=== PATIENT | male | born 1945 | race Caucasian/White ===

== ENCOUNTER 2019-04-26 06:08 | Day surgery (SDC) | payer OTHER ==
[2019-04-26] MEDS ORDERED: Lactated Ringers 1,000 ML IV SCH (07:00)
[2019-04-26] MEDS ORDERED: fentaNYL 100 MCG/2 ML SDV ONE (07:34)
[2019-04-26] MEDS ORDERED: Midazolam 1 MG/ML 2 ML SDV ONE (07:34)
[2019-04-26] MEDS ORDERED: Propofol 200 MG/20 ML SDV ONE (07:34)
--- NOTE | 2019-04-26 08:55 | OR ---
DATE OF PROCEDURE: 04/26/2019 PREOPERATIVE DIAGNOSIS: History of colon polyps. POSTOP DIAGNOSIS: Unremarkable colonoscopy, history of colon polyps. PROCEDURE: Colonoscopy to the cecum. SURGEON: Damon Zelaya MD ANESTHESIA: IV anesthesia with monitored anesthesia care. INDICATION: This 74-year-old white male is referred for a colonoscopy because of history of colon polyps. He says his last colonoscopic exam was done 5 years ago. I counseled him for the procedure, including risks and alternatives, and he gave his informed consent to proceed. DESCRIPTION OF PROCEDURE: The patient was placed in the left lateral decubitus position. IV anesthesia was administered by the Anesthesia Service. Time-out was held. A rectal exam was performed, which was unremarkable. The flexible video Olympus colonoscope was introduced through his anus, up his rectum, and out his colon all way to the cecum. Once the cecum was reached, the scope was slowly withdrawn, examining the mucosa throughout. No mucosal abnormalities were noted. The scope was retroflexed in the rectum with the distal rectum appearing unremarkable. The scope was straightened and removed. He tolerated the procedure well. Damon Zelaya MD /[id number]
[2019-04-27] MEDS ORDERED: Lactated Ringers 1,000 ML IV SCH (07:00)
== END 2019-04-26 09:03 | disposition home or self-care (01) ==
LOC: JP.SDS 06:08
PROVIDERS: ATTEND Surgery
DX: Z12.11 Encounter for screening for malignant neoplasm of colon (principal); I10 Essential (primary) hypertension; E78.5 Hyperlipidemia, unspecified; K21.9 Gastro-esophageal reflux disease without esophagitis; G47.33 Obstructive sleep apnea (adult) (pediatric); M54.5 Low back pain; E66.9 Obesity, unspecified; Z68.31 Body mass index [BMI] 31.0-31.9, adult; Z86.010 Personal history of colon polyps
CPT/HCPCS: 45378; J2250; J2704; J3010; J7120